=== PATIENT | male | born 1945 | race Caucasian/White ===

== ENCOUNTER 2019-08-13 14:50 | Observation (INO) | payer BC, MEDICARE ==
[~2019-08-13] VITALS: Ht 193 cm; Wt 101.7 kg
[2019-08-13] MEDS ORDERED: ASPI-1 PO (15:03)
[2019-08-13] MEDS ORDERED: PANTOPRAZOLE 40MG VIAL (C9113 PER 1) IV ONE (15:45)
[2019-08-13] MEDS ORDERED: ONDANSETRON 4MG/2ML VIAL IV ONE (15:45)
[2019-08-13 15:52] LABS: BASO % 0.4 % (0.0-1.0); EOS % 0.3 % (0.0-3.0); HEMATOCRIT 39.4 % (42.0-52.0); HEMOGLOBIN 13.3 g/dl (13.5-17.5); LYMPH # 1.3 10^3/uL (1.5-5.0); LYMPH % 16.8 % (24.0-44.0); MEAN CORPUSCULAR HEMOGLOBIN 33.3 pg (27.0-33.0); MEAN CORPUSCULAR HGB CONC 33.8 g/dl (32.0-36.5); MEAN CORPUSCULAR VOLUME 98.5 fl (80.0-96.0); MONO # 0.7 10^3/uL (0.0-0.8); NEUTROPHILS # 5.4 10^3/uL (1.5-8.5); NEUTROPHILS % 73.1 % (36.0-66.0); PLATELET COUNT, AUTOMATED 140 10^3/uL (150-450); WHITE BLOOD COUNT 7.4 10^3/uL (4.0-10.0)
[2019-08-13 16:32] LABS: ALBUMIN 4.2 GM/DL (3.2-5.2); ALT/SGPT 29 U/L (12-78); BILIRUBIN,DIRECT 0.2 MG/DL (0.0-0.2); BILIRUBIN,TOTAL 0.6 MG/DL (0.2-1.0); BLOOD UREA NITROGEN 29 MG/DL (7-18); CALCIUM LEVEL 9.2 MG/DL (8.8-10.2); CARBON DIOXIDE LEVEL 26 MEQ/L (21-32); CHLORIDE LEVEL 108 MEQ/L (98-107); CK-MB VALUE MASS 3.6 NG/ML (<3.6); CPK CREATINE PHOSPHOKINASE 197 U/L (39-308); CREATININE FOR GFR 1.01 MG/DL (0.70-1.30); GLOMERULAR FILTRATION RATE > 60.0 (>42); GLUCOSE, FASTING 80 MG/DL (70-100); LIPASE 57 U/L (73-393); MB/CK RELATIVE INDEX 1.83 (< OR =4); POTASSIUM SERUM 3.9 MEQ/L (3.5-5.1); SODIUM LEVEL 139 MEQ/L (136-145); TOTAL PROTEIN 6.8 GM/DL (6.4-8.2); TROPONIN I 0.43 NG/ML (< 0.10)
[2019-08-13] MEDS ORDERED: ASPIRIN 81 MG CHEW TABLET PO ONE (16:45)
[2019-08-13] MEDS: NITROGLYCERIN 0.4 MG SUBL TABLET SL PRN ×3 (16:49→17:00)
[2019-08-13] MEDS ORDERED: MORPHINE 2 MG/ML 1ML VIAL (J2270) IV ONE (17:45)
[2019-08-13 18:27] LABS: MB/CK RELATIVE INDEX 1.66 (< OR =4); TROPONIN I 0.45 NG/ML (< 0.10)
--- NOTE | 2019-08-13 18:36 | ECGEPIP ---
[facility] - ED Test Date: 2019-08-13 Pat Name: BELINDA TOUSSAINT Department: Room: - Gender: Male Rn Traveling: niko : 1945 Requested By: William Hemphill Order Number: [id number] Reading MD: Mariposa Hutchison Measurements Intervals [place] Rate: 53 P: 52 WV: 178 QRS: -2 QRSD: 101 T: 42 QT: 472 QTc: 446 Interpretive Statements SINUS BRADYCARDIA POSSIBLE RIGHT VENTRICULAR CONDUCTION DELAY POSSIBLE LEFT VENTRICULAR HYPERTROPHY NO PRIOR Electronically Signed on 08-13-2019 18:35:58 EDT by Mariposa Hutchison
--- NOTE | 2019-08-13 18:37 | ECGEPIP ---
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
--- NOTE | 2019-08-13 18:38 | REPVR ---
PROCEDURE INFORMATION: Exam: US Abdomen Limited, Right Upper Quadrant Exam date and time: 08/13/2019 6:07 PM Age: 73 years old Clinical indication: Abdominal pain; Epigastric; Additional info: Ruq/epigastric pain TECHNIQUE: Imaging protocol: Real-time ultrasound of the abdomen with image documentation. Examination was focused on the right upper quadrant. COMPARISON: No relevant prior studies available. FINDINGS: Liver: Normal echogenicity of the liver. Gallbladder: Gallbladder wall is not thickened. Common bile duct measures 5 mm. Common bile duct: See "Gallbladder" finding. Pancreas: Pancreas is obscured by overlying bowel gas. Right kidney: Right kidney measures 11 x 5 x 4.4 cm. Normal echogenicity. IMPRESSION: Unremarkable ultrasound of the right upper quadrant. Electronically signed by: Kj Haney On 08/13/2019 18:38:32 PM
[2019-08-13] MEDS ORDERED: GI COCKTAIL 50ML BTL(HYOSCYAMINE/MAALOX/LIDOCAINE VISCOUS)(1:3:1) PO ONE (18:45)
--- NOTE | 2019-08-13 22:48 | REP ---
SINGLE-VIEW CHEST, 08/13/2019: INDICATION: Epigastric pain. FINDINGS: The lungs are clear. There is no pleural effusion or pneumothorax. Cardiac silhouette is normal in size. IMPRESSION: Clear lungs. Electronically Signed by Jose Guadalupe Vieira DO 08/14/2019 08:42 A
[2019-08-13 22:49] LABS: CK-MB VALUE MASS 2.6 NG/ML (<3.6); MB/CK RELATIVE INDEX 1.6 (< OR =4); TROPONIN I 0.46 NG/ML (< 0.10)
[2019-08-13] MEDS ORDERED: MORPHINE 10 MG/ML 1ML VIAL (J2270) IV ONE (23:00)
[2019-08-13] MEDS ORDERED: ISOVUE-370 76% 100ML VIAL As Ordered ONE (23:07)
--- NOTE | 2019-08-13 23:58 | REPVR ---
PROCEDURE INFORMATION: Exam: CT Abdomen And Pelvis With Contrast Exam date and time: 08/13/2019 11:00 PM Age: 73 years old Clinical indication: Abdominal pain; Epigastric TECHNIQUE: Imaging protocol: Computed tomography of the abdomen and pelvis with intravenous contrast. Radiation optimization: All CT scans at this facility use at least one of these dose optimization techniques: automated exposure control; mA and/or kV adjustment per patient size (includes targeted exams where dose is matched to clinical indication); or iterative reconstruction. Contrast material: ISO; Contrast volume: 100 ml; Contrast route: INTRAVENOUS (IV); COMPARISON: GALLBLADDER US 08/13/2019 5:53 PM FINDINGS: Mediastinal space: Small hiatal hernia. Liver: Normal. No mass. Gallbladder and bile ducts: Normal. No calcified stones. No ductal dilation. Pancreas: Normal. No ductal dilation. Spleen: Normal. No splenomegaly. Adrenals: Normal. No mass. Kidneys and ureters: Normal. No hydronephrosis. Stomach and bowel: Unremarkable. No obstruction. No mucosal thickening. Appendix: No evidence of appendicitis. Intraperitoneal space: Unremarkable. No free air. No significant fluid collection. Vasculature: See "Soft tissues" finding. Lymph nodes: Unremarkable. No enlarged lymph nodes. Bladder: Unremarkable as visualized. Reproductive: Unremarkable as visualized. Bones/joints: Posterior spinal fixation of L2 and L3 vertebra. Soft tissues: There is a 2.7 cm soft tissue mass adjacent to or involving one of the of the branches of the SMA (series 601, image 87) IMPRESSION: No acute abnormality. Non-specific soft tissue mass adjacent to/ involving one of the of the superior mesenteric arterial branch. Electronically signed by: Kj Haney On 08/13/2019 23:57:36 PM
--- NOTE | 2019-08-14 00:09 | REPVR ---
PROCEDURE INFORMATION: Exam: CT Angiography Chest With Contrast Exam date and time: 08/13/2019 11:00 PM Age: 73 years old Clinical indication: Chest pain; Type not specified TECHNIQUE: Imaging protocol: Computed tomographic angiography of the chest with intravenous contrast. 3D rendering: MIP and/or 3D reconstructed images were created by the technologist. Radiation optimization: All CT scans at this facility use at least one of these dose optimization techniques: automated exposure control; mA and/or kV adjustment per patient size (includes targeted exams where dose is matched to clinical indication); or iterative reconstruction. Contrast material: ISO; Contrast volume: 100 ml; Contrast route: INTRAVENOUS (IV); COMPARISON: DC Chest, 1 view 08/13/2019 5:02 PM FINDINGS: Pulmonary arteries: Normal. No pulmonary emboli. Aorta: Unremarkable. No aortic aneurysm. No aortic dissection. Lungs: Unremarkable. No consolidation. No masses. Pleural space: Unremarkable. No pneumothorax. No pleural effusion. Heart: Unremarkable. No cardiomegaly. No pericardial effusion. Lymph nodes: Unremarkable. No enlarged lymph nodes. Bones/joints: Unremarkable. No acute fracture. Soft tissues: Unremarkable. IMPRESSION: No acute findings. Electronically signed by: James Paul On 08/14/2019 00:09:14 AM
[2019-08-14] MEDS ORDERED: IBUP200T45 PO (00:57)
[2019-08-14] MEDS ORDERED: PERCOCET 5MG/325MG TAB PO PRN ×2 (01:00)
--- NOTE | 2019-08-14 01:31 | HPEPDOC ---
[facility] Medical History & Physical Date of Admission Aug 14, 2019 Date of Service: Aug 14, 2019 Attending Physician: MIRANDA TAY MD History and Physical CHIEF COMPLAINT: Abdominal pain HISTORY OF PRESENT ILLNESS: 73-year-old male with past medical history of congestive heart failure (questionable Takotsubo's Cardiomyopathy), atrial fibrillation, presents with epigastric abdominal pain since yesterday. Patient reports constant, sharp, epigastric pain radiating to his back, without alleviating or aggravating factors, no associated shortness of breath, chest pain, nausea, vomiting, diarrhea or constipation. Patient has received GI cocktail and morphine in the emergency department, reports relief with morphine. Troponin are slightly elevated in the emergency department, but remained flat. Patient currently resting comfortable, denies any other complaints at this time. He reports following with c 13 catapult operator in [place] routinely, headache "normal" echocardiogram 3-4 months ago, was told to follow-up in one year. 10 point review of system is negative except for above PAST MEDICAL HISTORY: 1. Congestive heart failure/Takotsubo's cardiomyopathy. 2. Atrial fibrillation. PAST SURGICAL HISTORY: 1. Laminectomy. 2. Spinal fusion. 3. Right shoulder surgery. SOCIAL HISTORY: Denies smoking. Daily alcohol use (3-4 glasses of wine) Denies drug use FAMILY HISTORY: Negative for heart disease or malignancy ALLERGIES: Please see below. HOME MEDICATIONS: Please see below. PHYSICAL EXAMINATION: VITAL SIGNS: Please see below. GENERAL: No distress HEENT: Normocephalic, atraumatic, moist mucous membranes NECK: Supple CARDIOVASCULAR EXAMINATION: S1, S2, no murmurs RESPIRATORY EXAMINATION: Clear to auscultation, no wheezing ABDOMINAL EXAMINATION: Soft, nontender, nondistended, positive bowel sounds EXTREMITIES: Range of motion intact SKIN: No rash NEUROLOGICAL EXAMINATION: Alert and oriented 3, no focal deficits PSYCHIATRIC EXAMINATION: Calm and cooperative LABORATORY DATA: See below. IMAGING: CT chest, abdomen and pelvis without acute pathology, abdominal ultrasound negative for acute pathology MICROBIOLOGY: Please see below. ASSESSMENT: 73-year-old male with past medical history of congestive heart failure/takotsubo Cardiomyopathy and paroxysmal atrial fibrillation is being admitted for epigastric pain, rule out ACS. PLAN: 1. Rule out ACS. Epigastric pain with slightly elevated troponin and strong cardiac history, TTE ordered, telemetry monitoring, can discharge in 24-48 hours if asymptomatic and echo negative. Pain control with Percocet as needed 2. Paroxysmal atrial fibrillation. Status post electrocardioversion, continue aspirin 325 mg daily. DVT prophylaxis: Heparin subcutaneous. GI prophylaxis: Not needed Vital Signs Vital Signs Date Time Temp Pulse Resp B/P (MAP) Pulse Ox O2 Delivery O2 Flow Rate FiO2 08/14/19 01:01 50 97 08/14/19 01:00 158/78 (104) 08/13/19 23:31 22 Room Air 08/13/19 14:50 98.6 Laboratory Data Labs 24H Laboratory Tests 2 08/13/19 15:40: Immature Granulocyte % (Auto) 0.4, Neutrophils (%) (Auto) 73.1H, Lymphocytes (%) (Auto) 16.8L, Monocytes (%) (Auto) 9.0H, Eosinophils (%) (Auto) 0.3, Basophils (%) (Auto) 0.4, Neutrophils # (Auto) 5.4, Lymphocytes # (Auto) 1.3L, Monocytes # (Auto) 0.7, Eosinophils # (Auto) 0.0, Basophils # (Auto) 0.0, Nucleated Red Blood Cells % (auto) 0.0, Anion Gap 5L, Glomerular Filtration Rate > 60.0, Lactic Acid Level 1.1, Calcium Level 9.2, Total Bilirubin 0.6, Direct Bilirubin 0.2, Aspartate Amino Transf (AST/SGOT) 26, Alanine Aminotransferase (ALT/SGPT) 29, Alkaline Phosphatase 51, Total Creatine Kinase 197, Creatine Kinase MB 3.6, Creatine Kinase MB Relative Index 1.83, Troponin I 0.43H, Total Protein 6.8, Albumin 4.2, Albumin/Globulin Ratio 1.6, Lipase 57L 08/13/19 17:38: Total Creatine Kinase 181, Creatine Kinase MB 3.0, Creatine Kinase MB Relative Index 1.66, Troponin I 0.45H 08/13/19 22:08: Total Creatine Kinase 163, Creatine Kinase MB 2.6, Creatine Kinase MB Relative Index 1.60, Troponin I 0.46H CBC/BMP Laboratory Tests 08/13/19 15:40 Home Medications Scheduled Aspirin (Aspirin) 325 Mg Tablet, 325 MG PO DAILY Scheduled PRN Ibuprofen (Ibu-200) 200 Mg Tablet, 600 MG PO TID PRN for PAIN Allergies Coded Allergies: No Known Allergies (Verified Allergy, Unknown, 08/13/19) A-FIB/CHADSVASC A-FIB History Current/History of A-Fib/PAF?: Yes Current PO Anticoag Therapy: No Treatment Reason Anticoagulant not given: Not indicated/[id number] MIRANDA TAY MD Aug 14, 2019 01:31
[2019-08-14 07:10] VITALS: BP 152/72
--- NOTE | 2019-08-14 07:29 | ECGEPIP ---
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
[2019-08-14 08:07] LABS: HEMATOCRIT 39.2 % (42.0-52.0); HEMOGLOBIN 13.5 g/dl (13.5-17.5); MEAN CORPUSCULAR HEMOGLOBIN 33.4 pg (27.0-33.0); MEAN CORPUSCULAR HGB CONC 34.4 g/dl (32.0-36.5); PLATELET COUNT, AUTOMATED 148 10^3/uL (150-450); RED BLOOD COUNT 4.04 10^6/uL (4.30-6.10); WHITE BLOOD COUNT 8.7 10^3/uL (4.0-10.0)
[2019-08-14 08:36] LABS: ALBUMIN 3.6 GM/DL (3.2-5.2); ALT/SGPT 22 U/L (12-78); BLOOD UREA NITROGEN 23 MG/DL (7-18); CALCIUM LEVEL 8.6 MG/DL (8.8-10.2); CARBON DIOXIDE LEVEL 26 MEQ/L (21-32); CHLORIDE LEVEL 107 MEQ/L (98-107); CREATININE FOR GFR 0.95 MG/DL (0.70-1.30); GLOMERULAR FILTRATION RATE > 60.0 (>42); GLUCOSE, FASTING 83 MG/DL (70-100); MAGNESIUM LEVEL 2.3 MG/DL (1.8-2.4); POTASSIUM SERUM 3.9 MEQ/L (3.5-5.1); SODIUM LEVEL 140 MEQ/L (136-145); TOTAL PROTEIN 6.2 GM/DL (6.4-8.2)
[2019-08-14] MEDS ORDERED: ENOXAPARIN 40MG/0.4ML SYRINGE (J1650 PER 10MG) SC SCH (09:00)
[2019-08-14] MEDS ORDERED: ASPIRIN 325 MG TAB PO SCH (09:00)
[2019-08-14 09:58] VITALS: BP 154/72
[2019-08-14 14:00] VITALS: BP 147/69
[2019-08-14 14:44] LABS: CK-MB VALUE MASS 2.1 NG/ML (<3.6); CPK CREATINE PHOSPHOKINASE 123 U/L (39-308); MB/CK RELATIVE INDEX 1.71 (< OR =4); TROPONIN I 0.46 NG/ML (< 0.10)
[2019-08-14] MEDS ORDERED: AMLO5TAB6 PO (14:52)
--- NOTE | 2019-08-14 15:54 | DS.PDOC ---
Discharge Summary General Date of Admission Aug 13, 2019 at 14:51 Date of Discharge 08/14/2019 Discharge Summary PROCEDURES PERFORMED DURING STAY: [None]. ADMITTING DIAGNOSES / DISCHARGE DIAGNOSES: s/p Epigastric pain Hypertensive urgency Troponin elevation - possibly 2/2 demand ischemia - 2/2 hypertensive urgency Paroxysmal A. fib DVT prophylaxis COMPLICATIONS/CHIEF COMPLAINT: Epigastric pain HISTORY OF PRESENT ILLNESS: Patient is a 73-year-old male with PMHx of congestive heart failure (questi onable Takotsubo's Cardiomyopathy), atrial fibrillation, Loop recorder, who presented with epigastric abdominal pain since yesterday. Patient reports constant, sharp, epigastric pain radiating to his back, without alleviating or aggravating factors, no associated shortness of breath, chest pain, nausea, vomiting, diarrhea or constipation. Patient has received GI cocktail and morphine in the emergency department, reports relief with morphine. Troponin are slightly elevated in the emergency department, but remained flat. Patient currently resting comfortable, denies any other complaints at this time. He reports following with crystal machining coordinator in [place] routinely, reported "normal" echocardiogram 3-4 months ago, was told to follow-up in one year. He was admitted to hospitalist service for further evaluation and treatment. HOSPITAL COURSE: s/p Epigastric pain - Patient has reported significant improvement of his abdominal pain - Remains hemodynamically stable and afebrile - GB ultrasound 08/12: Unremarkable ultrasound of the right upper quadrant. - CTA chest 08/12: No acute findings. - CT abdomen / pelvis 08/12: No acute abnormality. Non-specific soft tissue mass adjacent to/ involving one of the of the superior mesenteric arterial branch. - Discussed findings imaging with radiology in interventional radiology; at this point, patient may require surveillance imaging/comparison against prior imaging and determine need for biopsy; however, this finding is unlikely to represent the etiology for epigastric pain - I discussed the findings of imaging with the patient directly; he has verbalized understanding for the need for additional imaging and/or biopsy - Will have referral to surgery as an outpatient for additional imaging/biopsy Hypertensive urgency - Patient does not have a history of hypertension. However, upon arrival to emergency room, patient's systolic blood pressure was in the 200s - Has been started on low-dose amlodipine for better blood pressure control - Currently, patient blood pressure is optimized - Will continue with amlodipine as outpatient - Discussed with patient's crystal machining coordinator, Dr. Maynard; will have outpatient follow-up within 7 days Troponin elevation - possibly 2/2 demand ischemia - 2/2 hypertensive urgency - Currently patient denies any chest pain, palpitations or short of breath - Serial EKGs have been reviewed without any evidence of ischemic change - Troponins have remained stable Paroxysmal A. fib - Currently is bradycardic - Discussed with his Hothouse Worker in [place], Dr. Maynard; patient has a history of bradycardia - Currently not on rate control medications - c/w ASA 325 DVT prophylaxis - c/w Hepatin DISCHARGE MEDICATIONS: Please see below. ALLERGIES: Please see below. PHYSICAL EXAMINATION ON DISCHARGE: Vitals (See below) General: Sitting up in bed, appears comfortable, AAOx3 HEENT: NC, AT CVS: +S1S2 Lungs: Fair air entry b/l, -w/r/r Abdomen: Soft, ND, NT Extremities: No evidence of edema, - Calf tenderness LABORATORY DATA: Please see below. ACTIVITY: [As tolerated]. DISCHARGE PLAN: Follow up with PCP, Cardiology (Dr. Maynard) and Surgery in [place] within 5 days Remain compliant with treatment plan and medications Return to the ER if you experience any problems DISPOSITION: Home DISCHARGE CONDITION: [Stable]. TIME SPENT ON DISCHARGE: 35 minutes Vital Signs/I&Os Vital Signs Date Time Temp Pulse Resp B/P (MAP) Pulse Ox O2 Delivery O2 Flow Rate FiO2 08/14/19 14:00 97.9 65 20 147/69 (95) 100 08/14/19 07:10 Room Air Laboratory Data Labs 24H Laboratory Tests 2 08/13/19 17:38: Total Creatine Kinase 181, Creatine Kinase MB 3.0, Creatine Kinase MB Relative Index 1.66, Troponin I 0.45H 08/13/19 22:08: Total Creatine Kinase 163, Creatine Kinase MB 2.6, Creatine Kinase MB Relative Index 1.60, Troponin I 0.46H 08/14/19 07:29: Total Creatine Kinase 123, Creatine Kinase MB 2.1, Creatine Kinase MB Relative Index 1.71, Troponin I 0.46H, Nucleated Red Blood Cells % (auto) 0.0, Anion Gap 7L, Glomerular Filtration Rate > 60.0, Calcium Level 8.6L, Magnesium Level 2.3, Total Bilirubin 1.0#, Aspartate Amino Transf (AST/SGOT) 22, Alanine Aminotransferase (ALT/SGPT) 22, Alkaline Phosphatase 49, Total Protein 6.2L, Albumin 3.6, Albumin/Globulin Ratio 1.4 CBC/BMP Laboratory Tests 08/14/19 07:29 Discharge Medications Scheduled Amlodipine Besylate (Amlodipine Besylate) 5 Mg Tablet, 5 MG PO BID Aspirin (Aspirin) 325 Mg Tablet, 325 MG PO DAILY, (Reported) Allergies Coded Allergies: No Known Allergies (Verified Allergy, Unknown, 08/13/19) BRITNEY BLANK MD Aug 14, 2019 15:54
[2019-08-14] MEDS ORDERED: GI COCKTAIL 50ML BTL(HYOSCYAMINE/MAALOX/LIDOCAINE VISCOUS)(1:3:1) PO ONE (16:00)
[2019-08-14] MEDS ORDERED: amLODIPine 5 MG TAB PO SCH (21:00)
[2019-08-15] MEDS ORDERED: ACET-683 PO (09:50)
--- NOTE | 2019-08-16 06:44 | ECHO ---
DATE OF PROCEDURE: 08/14/2019 DATE OF : 1945 AGE: 73 REFERRING PROVIDER: Dr. Fouriner PATIENT LOCATION: Room 4202 REASON FOR STUDY: Chest pain. 2-D MEASUREMENTS: IVS: 1.2 cm LV: 6.2 cm LVPW: 1.2 cm LA: 4.4 cm Aorta: 4.0 cm IVC: 2.5 cm DOPPLER MEASUREMENTS: Peak velocity across the aortic valve: 1.5 m/s Peak velocity across the LVOT: 1.1 m/s Mitral E: 0.74 Mitral A: 0.68 Ratio: 1.1 Maximum tricuspid valve velocity: 2.5 m/s 2-D COMMENTS: 1. Subjectively, the left ventricle appeared to be normal in size. Normal left ventricular wall thickness. Left ventricular systolic function is normal, estimated at 60-65%. 2. Mildly enlarged left atrium. Normal right atrium and right ventricle. 3. The atrial septum appeared to be normal without evidence of defect or shunt. 4. Mildly dilated aortic root at 4.0 cm. 5. No pericardial effusion seen. 6. Mildly calcified aortic valve, leaflet excursion appeared to be normal. Normal mitral valve, tricuspid valve and pulmonic valve. The proximal pulmonary artery branches were not well visualized. DOPPLER: It detects moderate aortic regurgitation, mild to moderate mitral regurgitation, mild tricuspid regurgitation, and mild pulmonic regurgitation. The calculated pulmonary artery systolic pressure varies between 30-40 mmHg. Abnormal relaxation pattern was noted across the mitral valve leaflets as well as the mitral valve annulus consistent with features of grade 2 left ventricular diastolic dysfunction. IMPRESSION: 1. Normal global left ventricular systolic function. There are some features of left ventricular diastolic dysfunction, grade 2. 2. Aortic valve sclerosis with moderate aortic regurgitation, but no aortic stenosis. 3. Mild to moderate mitral regurgitation with a mildly enlarged left atrium. 4. Mild tricuspid regurgitation with mild pulmonary hypertension. 5. Mild pulmonic regurgitation. 6. The aortic root is mildly enlarged at 4.0 cm. There was no evidence of bicuspid aortic valve.
== END 2019-08-14 16:30 | disposition home or self-care (01) ==
LOC: M ED 14:50 → M ED INP 14:51 → ENRESERV 08-14 06:42 → M MSPAV 08-14 07:06
PROVIDERS: ADMIT Internal Medicine; ATTEND Internal Medicine
DX: R10.13 Epigastric pain (principal); I16.0 Hypertensive urgency; R74.8 Abnormal levels of other serum enzymes; I48.0 Paroxysmal atrial fibrillation; R00.1 Bradycardia, unspecified; Z86.718 Personal history of other venous thrombosis and embolism; I50.9 Heart failure, unspecified; Z79.899 Other long term (current) drug therapy; Z79.82 Long term (current) use of aspirin
CPT/HCPCS: 36415; 71045; 71275; 74177; 76705; 80048; 80053; 80076; 82550; 82553; 83605; 83690; 83735; 84484; 85025; 85027; 93005; 93041; 93306; 96372; 96374; 96375; 96376; 99285; C9113; G0378; J1650; J2270; J2405; Q9967

== ENCOUNTER 2019-08-15 09:04 | Emergency (ER) | payer MEDICARE ==
[~2019-08-15] VITALS: Ht 193 cm; Wt 101.3 kg
[~2019-08-15 09:04] MED LIST: AMLO5TAB6 PO; ASPI-1 PO; IBUP200T45 PO
[2019-08-15] MEDS ORDERED: NS 1,000 ML IV SCH (09:16)
[2019-08-15 09:47] LABS: BASO % 0.2 % (0.0-1.0); EOS % 0.1 % (0.0-3.0); HEMATOCRIT 40.2 % (42.0-52.0); HEMOGLOBIN 13.5 g/dl (13.5-17.5); LYMPH % 11.8 % (24.0-44.0); MEAN CORPUSCULAR HGB CONC 33.6 g/dl (32.0-36.5); MEAN CORPUSCULAR VOLUME 98.3 fl (80.0-96.0); MONO # 1.1 10^3/uL (0.0-0.8); MONO % 13.5 % (0.0-5.0); NEUTROPHILS # 6.2 10^3/uL (1.5-8.5); NEUTROPHILS % 73.8 % (36.0-66.0); PLATELET COUNT, AUTOMATED 146 10^3/uL (150-450); RED BLOOD COUNT 4.09 10^6/uL (4.30-6.10); WHITE BLOOD COUNT 8.5 10^3/uL (4.0-10.0)
[2019-08-15] MEDS ORDERED: ACET-683 PO (09:50)
[2019-08-15 10:12] LABS: BILIRUBIN,DIRECT 0.3 MG/DL (0.0-0.2); CK-MB VALUE MASS 1.1 NG/ML (<3.6); MB/CK RELATIVE INDEX 0.96 (< OR =4); TOTAL PROTEIN 6.9 GM/DL (6.4-8.2); TROPONIN I 0.39 NG/ML (< 0.10)
[2019-08-15] MEDS ORDERED: ISOVUE-370 76% 100ML VIAL As Ordered ONE (10:21)
[2019-08-15] MEDS ORDERED: GI COCKTAIL 50ML BTL(HYOSCYAMINE/MAALOX/LIDOCAINE VISCOUS)(1:3:1) PO ONE (10:30)
[2019-08-15] MEDS: MORPHINE 4 MG/ML 1ML VIAL/SYRINGE (J2270) IV PRN ×2 (11:24→13:41)
[2019-08-15] MEDS ORDERED: ONDANSETRON 4MG/2ML VIAL IV ONE (11:30)
--- NOTE | 2019-08-15 11:37 | REP ---
CT ABDOMEN/PELVIS WITH IV BUT WITHOUT ORAL CONTRAST: HISTORY: Abdomen pain. Comparison studies are from August 13, 2019. CT CONTRAST DOSE: 100 mL of intravenous Isovue [address] FINDINGS: Preliminary digital oil furnace installer radiograph demonstrates mild gaseous distension of central abdominal small bowel loops, question ileus. This is similar in appearance to the prior oil furnace installer. The lung bases are clear. The liver and the spleen are normal in size, homogeneous in texture. No focal hepatic mass lesion is seen. No abnormalities noted in the pancreas or the gallbladder. No adrenal abnormality is observed on either side. No upper abdominal adenopathy is seen. The spleen is unremarkable. The kidneys enhance symmetrically and are morphologically intact. The celiac and superior mesenteric artery origins are patent. There is a soft tissue mass in the central small bowel mesentery again noted. On today's study, this measures 4.2 x 2.6 x 3.[address] study done 2 days ago, this mass measured 2.9 x 2.5 x 3.4 cm by my measurements. It appears to be slightly larger. There is a little more adjacent fat streaking and edema surrounding the mass. There are multiple tiny mesenteric lymph nodes adjacent to this which are slightly more prominent than on the study done 2 days ago. There is a small quantity of smooth mesenteric fluid. The urinary bladder is distended today. There is a small quantity of ascitic fluid in the pelvic reflections posterior to the bladder. This is a new finding. There is no evidence of free intraperitoneal air. IMPRESSION: The known small bowel mesenteric mass appears slightly larger than it did 2 days ago, and there is surrounding edema and some interval enlargement of adjacent lymph nodes. There is a small quantity of ascites, which is a new finding, in the posterior pelvic reflections. No other acute abnormality. The urinary bladder is distended today. Electronically Signed by Galo Heredia MD 08/15/2019 01:05 P
--- NOTE | 2019-08-15 14:38 | ECGEPIP ---
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
--- NOTE | 2019-08-15 15:39 | CR ---
DATE OF CONSULTATION: 08/15/[address] Portia Martinez of the emergency department. REASON FOR CONSULTATION: Abnormal CT finding. HISTORY OF PRESENT ILLNESS: The patient is a 73-year-old man who had presented to the emergency department on the August 12. He has a history of some heart failure and atrial fibrillation and had presented complaining of epigastric pain. He was primarily evaluated for a possible cardiac issue, but his cardiac testing apparently was negative. He had been admitted to the hospitalists early in the morning of August 13 and was subsequently discharged home after his serial cardiac enzymes were felt to be unremarkable. At the time of admission, he had undergone testing with a CT scan of the abdomen and pelvis, which reported a 2.7 cm soft tissue mass adjacent to or involving one of the branches of the superior mesenteric artery. This was felt to be a nonspecific finding. He had complained of epigastric discomfort. He returned at 9:04 a.m. on August 14 complaining that he had persistent back and epigastric pain that had not resolved. He had been quite hypertensive on his initial presentation on August 12 and was again hypertensive in the emergency department on August 14. Because of his persistent discomfort, a repeat CT scan of the abdomen and pelvis was obtained. This revealed that the small area of nonspecific soft tissue mass in the small bowel mesentery had increased in size to a maximum of 4.2 cm from approximately 2.5 cm on August 12. There was some surrounding edema or inflammation. There appeared to be some enlarged lymph nodes according to the radiologist. Dr. Pearce requested that I review the images and see if I could give her my interpretation and recommendations. She did not request that I come see the patient. Review of his emergency department records shows that on August 14 he had presented afebrile with a pulse in the 60s and an initial pressure of 180/85. He was apparently not having any nausea or vomiting and had not reported any signs or symptoms suggestive of infectious process. Laboratory studies from August 14 show a white count of 8, hemoglobin 14, hematocrit 40, and a platelet count of 146. Differential count showed 74% neutrophils, 12% lymphocytes, and 14% monocytes. Chemistries showed normal electrolytes, BUN, creatinine, and glucose. His troponin was 0.39, which is slightly less than it had been on August 12 and . Lipase was normal at 69. His lactic acid was 0.9. I reviewed the CT imaging from August 12 and . A small irregularity noted on August 12. This appears to be approximately the same density as the inferior vena cava and has a branch of the superior mesenteric artery applied directly along the medial and superior aspects of this abnormality. It appears to be quite discrete with discrete borders throughout much of its diameter. The maximum diameter appears to be approximately 2.9 cm. There are some loops of bowel nearby but not directly in contact with this abnormality. On the followup images from August 14, the abnormality is larger and has slightly less distinct borders and seems to have a more transverse orientation of its maximum diameter. There is still a vessel apparent along the left side of this. There is some inflammation of the surrounding fatty tissue, streaky in several areas. There may be some slightly enlarged lymph nodes, and there are likewise still some loops of bowel that are primarily anterior to this but not directly adjacent. The other great vessels did not seem to show any significant abnormality. There is perhaps a little minimal free fluid in the pelvis on the current study. The maximum diameter of the density has increased to of 4.2 cm. IMPRESSION: The patient has a density in the root of the small-bowel mesentery directly adjacent and surrounded by a branch of the superior mesenteric artery. This has clearly changed significantly in size, that is increased, in the last 2 days. There may be some slight increased nodes surrounding this, although it may just be that the inflammation in the tissues accentuates this appearance. The two possibilities would be some sort of infectious process or some sort of vascular process. 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 RECOMMENDATIONS: I called Dr. Pearce, and we spoke after I had a chance to review both CT scans. I advised her that I think this is most likely a vascular anomaly with bleeding in this area to account for the significant increase of size of this area with persistent pain. I think the patient warrants evaluation, most likely with an arteriogram urgently, and I discussed with her that if this is not available locally, that I believe he should be transferred urgently for evaluation elsewhere. Though I suppose it is possible that this represents some sort of localized infection, I think it is harder for me to explain what the origin of this would be, and that is a less immediately life-threatening process than would be a bleed. She appreciated my interpretation and agreed that she will likely be seeking transfer for the patient. RHETT
[2019-08-15 15:50] VITALS: BP 170/81
[2019-08-15] MEDS ORDERED: MORPHINE 4 MG/ML 1ML VIAL/SYRINGE (J2270) IV PRN (16:00)
== END 2019-08-15 15:58 | disposition short-term general hospital (02) ==
LOC: M ED 09:04
DX: I10 Essential (primary) hypertension (principal); R19.00 Intra-abdominal and pelvic swelling, mass and lump, unspecified site; I50.9 Heart failure, unspecified; I48.91 Unspecified atrial fibrillation; Z79.899 Other long term (current) drug therapy; Z79.82 Long term (current) use of aspirin
CPT/HCPCS: 74177; 80047; 80076; 82550; 82553; 83605; 83690; 84484; 85025; 87486; 87581; 87633; 87798; 93005; 93041; 96361; 96374; 96375; 96376; 99285; J2270; J2405; Q9967